=== PATIENT | male | born 1950 | race Caucasian/White ===

== ENCOUNTER 2021-10-23 14:36 | Observation (INO) | payer OTHER ==
[~2021-10-23] VITALS: Ht 170.2 cm; Wt 65.8 kg
[2021-10-23 14:59] VITALS: BP 128/81
[2021-10-23] MEDS ORDERED: MORPHINE SULFATE 4 MG/ML SYR IVP ONE (15:05)
[2021-10-23] MEDS ORDERED: DICYCLOMINE HCL LIQUID 20 MG, ALUMINUM HYD/MAG/SIMETHICONE 30 ML, LIDOCAINE VISCOUS 2% ... PO ONE ×3 (15:05)
[2021-10-23] MEDS ORDERED: ONDANSETRON 4 MG/2 ML VIAL IVP ONE (15:05)
[2021-10-23] MEDS ORDERED: ALUMINUM HYD/MAG/SIMETHICONE 30 ML UDC ONE (15:23)
[2021-10-23] MEDS ORDERED: DICYCLOMINE HCL LIQUID 10 MG/5 ML UDC ONE (15:24)
[2021-10-23 15:47] LABS: BASOPHILS # (AUTO) 0.1 K/uL (0.00-0.22); EOSINOPHILS # (AUTO) 0.3 K/uL (0-0.4); EOSINOPHILS % (AUTO) 6.4 % (0.0-4.0); HEMATOCRIT 38.4 % (36-52); HEMOGLOBIN 13.2 g/dL (12.0-18.0); LYMPHOCYTES # (AUTO) 2.1 K/uL (2.0-11.5); LYMPHOCYTES % (AUTO) 39.9 % (20.5-51.1); MEAN CORPUSCULAR HEMOGLOBIN 31 pg (27-31); MEAN CORPUSCULAR HGB CONC 34 g/dL (33-37); MONOCYTES # (AUTO) 0.2 K/uL (0.8-1.0); MONOCYTES % (AUTO) 4.8 % (1.7-9.3); NEUTROPHILS # (AUTO) 2.5 K/uL (1.8-7.7); NEUTROPHILS % (AUTO) 47.9 % (42.2-75.2); PLATELET COUNT (AUTO) 291 K/uL (140-450); RED BLOOD CELL COUNT(AUTO) 4.32 MIL/uL (4.20-6.10); WHITE BLOOD COUNT (AUTO) 5.1 K/uL (4.8-10.8)
--- NOTE | 2021-10-23 15:54 | NUR ---
patient taken to ct via parminder
--- NOTE | 2021-10-23 16:05 | NUR ---
PT BACK FROM CT
[2021-10-23 16:15] LABS: ALBUMIN 3.3 g/dL (3.4-5.0); ANION GAP 10.2 (8-16); CARBON DIOXIDE 27.6 mmol/L (21-32); CREATININE 0.8 mg/dL (0.6-1.3); POTASSIUM 3.8 mmol/L (3.5-5.1); TOTAL BILIRUBIN 0.9 mg/dL (0.0-1.0)
--- NOTE | 2021-10-23 17:05 | NUR ---
PT HAS 20G IV CATH L FOREARM. PT IS IN GOWN AND RESTING IN BED. SIDE RAILS UP X2 BED AT LOWEST POSITION. BEDSIDE MONITOR ON PATIENT. 01/01 PAIN
[2021-10-23] MEDS ORDERED: NACL 0.9% 1,000 ML IV ONE (17:15)
[2021-10-23] MEDS ORDERED: KETOROLAC 30 MG/ML VIAL IVP ONE (17:15)
--- NOTE | 2021-10-23 17:22 | NUR ---
71YR OLD MALE BIB SELF C/O OF ABD PAIN X2 WEEKS. V/D DENIES CP SOB . 9/10 PAIN LEVEL. PT IS FEVER FREE. CZECH SPEAKING . NO DISTRESS NOTED . RESP EVEN AND UNLABORED. A&OX4 . TRAMDOL NO MED HX
--- NOTE | 2021-10-23 18:05 | NUR ---
PT USING URINAL AT BEDSIDE
--- NOTE | 2021-10-23 18:14 | NUR ---
URINE TO LAB
[2021-10-23] MEDS ORDERED: ASPI-1822 PO (18:32)
[2021-10-23] MEDS ORDERED: LOSA100T1 PO (18:32)
[2021-10-23] MEDS ORDERED: HYDR-4004 PO (18:32)
[2021-10-23] MEDS ORDERED: PANT40EC PO (18:32)
[2021-10-23] MEDS ORDERED: MECL-303 PO (18:32)
[2021-10-23] MEDS ORDERED: AMLO10TA PO (18:32)
[2021-10-23 18:37] LABS: APPEARANCE,URINE CLEAR (CLEAR); BILIRUBIN,URINE NEGATIVE (NEGATIVE); BLOOD, URINE NEGATIVE (NEGATIVE); COLOR,URINE YELLOW (YELLOW); LEUKOCYTE ESTERASE ,URINE NEGATIVE (NEGATIVE); NITRITE, URINE NEGATIVE (NEGATIVE); PH,URINE 5.5 (5.0-9.0); UGLUCOSE NEGATIVE (NEGATIVE)
--- NOTE | 2021-10-23 18:49 | NUR ---
PT WALKED TO BATHROOM WITH STEADY GAIT. URINE SENT TO LAB . PT PLACED BACK ON MONITOR . PENDING ADMISSION ORDERS
[2021-10-23] MEDS ORDERED: ZOLPIDEM 5 MG TAB PO PRN (19:05)
[2021-10-23] MEDS ORDERED: ACETAMINOPHEN 325 MG TAB PO PRN (19:05)
[2021-10-23] MEDS ORDERED: POTASSIUM CHLORIDE 10 MEQ TABER PO PRN (19:05)
[2021-10-23] MEDS ORDERED: DOCUSATE SODIUM 100 MG GELCAP PO PRN (19:05)
[2021-10-23] MEDS ORDERED: guaiFENesin DM 200/20 MG-10 ML 10 ML UDC PO PRN (19:05)
[2021-10-23] MEDS: NACL 0.9% 1,000 ML IV SCH (19:30)
--- NOTE | 2021-10-23 19:35 | NUR ---
ASSISTED PATIETN UP TO USE THE RR. ALL NEEDS MET
--- NOTE | 2021-10-23 19:40 | NUR ---
PATIETN SITTING UP TALKING TO FAMILY MEMBER. BED LOW AND LOCKED. SIDE RAIL UP FOR SAFETY. ALL NEEDS MET
--- NOTE | 2021-10-23 19:44 | NUR ---
FAMILY AT BEDSIDE
[2021-10-23 20:23] LABS: FREE T4 (FREE THYROXINE) 0.23 ng/dL (0.76-1.46); MAGNESIUM 1.4 mg/dL (1.8-2.4); PHOSPHORUS 3.7 mg/dL (2.5-4.9); THYROID STIMULATING HORMONE 56.08 uIU/mL (0.34-3.74)
--- NOTE | 2021-10-23 20:27 | NUR ---
Patient will be admitted to care of DR. KYLE. Admited to [facility]. Will go to room 112A. Belongings list completed. Report to FLY VYAS.
--- NOTE | 2021-10-23 20:57 | NUR ---
The patient's care was reviewed and supervised by Mariama Charlton RN.
--- NOTE | 2021-10-23 22:00 | NUR ---
RECEIVED REPORT FROM ER NURSE ESSENCE ON NEW ADMIT. PT ARRIVED VIA GURNEY TO RM 112-A. PT IS STABLE IN BED. A&OX4. DENIES PAIN AT THIS TIME. ON RM AIR.RR EVEN AND UNLABORED WITH EQUAL CHEST RISE. GI IS INTACT. CC: NAUSEA AND ABDOMINAL PAIN.DX:ABDOMINAL PAIN, ENTERITIS, HYPONATREMIA. PT'S SKIN IS INTACT. PT IS AMBULATORY AND CONTINENT. ALL SAFETY MEASURES IN PLACE. CALL LIGHT WITHIN REACH. WILL CONTINUE TO MONITOR.
[2021-10-23 22:04] LABS: PROTHROMBIN TIME 12.7 secs (10.8-13.4)
--- NOTE | 2021-10-23 22:15 | NUR ---
VSS. MEDS FROM HOME IN BAG LABELED IN MED ROOM . WILL EITHER BE SENT TO PHARMACY OR GIVEN TO FAMILY TO TAKE HOME. DAUGHTER JOHN DELEON CALLED GAVE PT HISTORY: PT HAS HX OF GASTRIC ULCER, GASTRITIS. 10/19/21 HAD ENDOSCOPY AT [facility] THAT SHOWED ULCER WAS HEALED BUT PT WAS POSITIVE FOR H PYLORI. 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 SAW A SPECIALIST ON Mon10/20/21 THAT SAID IT WOULD TAKE TWO MONTHS TO GET BACK TO NORMAL. PT CAN'T TOLERATE COLD LIQUIDS OR SPICY FOODS. HAS HISTORY OF [place] RECEIVED CANCER TREATMENT AND ONCOLOGIST ADVISED PT NOT TO GET COVID VACCINE. PT IS COVID RAPID NEGATIVE. ALSO PT IS ALLERGIC TO TRAMADOL. ARM BAND APPLIED. ALL SAFETY MEASURES IN PLACE. WILL CONTINUE TO MONITOR.
[2021-10-23] MEDS: HYDROcodone/APAP 7.5/325 MG 1 TAB PO PRN (22:19)
--- NOTE | 2021-10-23 22:19 | NUR ---
PT C/O 10/31 ABDOMINAL PAIN RECEIVED NORCO 7.5/325 MG TABLET PO WITH APPLE JUICE. AT 2224 HAD EMESIS 150CC OF GASTRIC CONTENTS. AT 2231 ZOFRAN 4MG/2ML IVP GIVEN WITH RELIEF AFTER 20 MINUTES. SLEPT FOR 1 HOUR. WILL CONTINUE WITH FREQ ROUNDS
[2021-10-23] MEDS: ONDANSETRON 4 MG/2 ML VIAL IM/IVP PRN (22:32)
[2021-10-24 01:22] LABS: BARBITURATE, URINE NEGATIVE ng/ml (NEG <=200); BENZODIAZEPINE, URINE NEGATIVE ng/mL (NEG <=200); CANNABINOID, URINE NEGATIVE ng/mL (NEG <=50); COCAINE, URINE NEGATIVE ng/mL (NEG <=300); OPIATE, URINE POSITIVE ng/mL (NEG <=2000); PHENCYCLIDINE SCREEN,URINE NEGATIVE ng/mL (NEG <=25)
[2021-10-24 01:50] LABS: CHOL/HDL RATIO 5.7 (1-4.5)
--- NOTE | 2021-10-24 02:00 | NUR ---
PT AMBULATES WITH STEADY GAIT. VOIDED BUT NO BM. UA FOR DRUG SCREEN WAS COLLECTED AND SENT TO LAB. STILL NEED STOOL FOR CULTURE AND WBC. PT RESTING BUT NOT SLEEPING. REFUSED SLEEPING PILL. EDUCATED PT ON USE OF CALL LIGHT WILL CONTINUE TO MONITOR .
--- NOTE | 2021-10-24 03:30 | NUR ---
HAD ANOTHER EPISODE OF EMESIS AFTER AMBULATING TO THE BATHROOM. RECONNECTED PT UP TO IVF; NS @100CC/HR. PT IS SITTING AT BEDSIDE WITH VOMIT BAG. ALL SAFETY MEASURES IN PLACE. BED IN LOW AND LOCKED POSITION. PT IS STABLE AT THIS TIME. REFUSED OFFERED PAIN MED OR ZOFRAN. NOW PT IS LYING IN BED C/O BEING COLD. WARM BLANKET GIVEN. PT IS RESTING WITH EYES CLOSED RR EVEN AND UNLABORED WITH EQUAL CHEST RISE.MAD AT THIS TIME. WILL CONTINUE TO MONITOR,
[2021-10-24 04:00] VITALS: BP 125/71
[2021-10-24] MEDS: NACL 0.9% 1,000 ML IV SCH ×3 (05:05→22:16)
[2021-10-24 06:40] LABS: BASOPHILS % (AUTO) 0.4 % (0.0-2.0); EOSINOPHILS # (AUTO) 0.2 K/uL (0-0.4); EOSINOPHILS % (AUTO) 3.8 % (0.0-4.0); HEMATOCRIT 34.7 % (36-52); HEMOGLOBIN 11.8 g/dL (12.0-18.0); LYMPHOCYTES # (AUTO) 1.6 K/uL (2.0-11.5); LYMPHOCYTES % (AUTO) 26.9 % (20.5-51.1); MEAN CORPUSCULAR HEMOGLOBIN 31 pg (27-31); MEAN CORPUSCULAR HGB CONC 34 g/dL (33-37); MONOCYTES # (AUTO) 0.5 K/uL (0.8-1.0); MONOCYTES % (AUTO) 8.4 % (1.7-9.3); NEUTROPHILS # (AUTO) 3.7 K/uL (1.8-7.7); NEUTROPHILS % (AUTO) 60.5 % (42.2-75.2); PLATELET COUNT (AUTO) 255 K/uL (140-450); RED BLOOD CELL COUNT(AUTO) 3.85 MIL/uL (4.20-6.10); WHITE BLOOD COUNT (AUTO) 6.1 K/uL (4.8-10.8)
[2021-10-24 06:56] LABS: ANION GAP 11.6 (8-16); CARBON DIOXIDE 25.4 mmol/L (21-32); CREATININE 0.7 mg/dL (0.6-1.3)
--- NOTE | 2021-10-24 07:30 | NUR ---
ENDORSED TO AM RN FOR CONTINUITY OF CARE. PT IS STABLE. ALL NEEDS MET THROUGHOUT SHIFT.
--- NOTE | 2021-10-24 07:35 | NUR ---
RECEIVED PT FROM NIGHT RN, PT IS ALERT, AWAKE AND ORIENTED, YORUBA SPEAKING, ON ROOM AIR, WITH IV LINE NOTED ON THE LFA G. 20 WITH NS INFUSING AT 100ML/HR, PT'S IV LINE WAS NOTED TO BE INFILTRATED, REMOVED AND WILL RE-INSERT ANOTHER ONE, NO SIGN OF DISTRESS NOTED AND WILL CONTINUE TO MONITOR PT.
[2021-10-24 08:00] VITALS: BP 129/66
--- NOTE | 2021-10-24 08:24 | NUR ---
RECEIVED A CALL FROM DR. MONCADA AND MADE A TELEPHONE ORDER TO KEEP PT NPO NOW FOR MD PLANS ON DOING EGD TO PT.
--- NOTE | 2021-10-24 08:51 | NUR ---
PATIENT HAS BEEN SCREENED AND CATEGORIZED HIGH NUTRITION RISK. PATIENT WILL BE SEEN WITHIN 1-2 DAYS OF ADMISSION. 10/24/21-10/25/[address] REFERRAL RECEIVED FOR VOMITING OVER 3 DAYS.
[2021-10-24] MEDS ORDERED: BISMUTH SUBSALICYLATE 15 ML UDBTL PO SCH (09:00)
[2021-10-24] MEDS: CLARITHROMYCIN 500 MG TAB PO SCH ×2 (09:54→21:52)
[2021-10-24] MEDS: ONDANSETRON 4 MG/2 ML VIAL IM/IVP PRN ×2 (09:54→22:15)
[2021-10-24] MEDS: HYDROcodone/APAP 7.5/325 MG 1 TAB PO PRN (09:54)
[2021-10-24] MEDS: PANTOPRAZOLE 40 MG TABEC PO SCH ×2 (09:54→21:53)
--- NOTE | 2021-10-24 09:54 | NUR ---
PT WAS MEDICATED WITH NORCO FOR PAIN ON HIS ABDOMEN.
[2021-10-24] MEDS: AMOXICILLIN 500 MG CAP PO SCH ×2 (10:38→21:52)
[2021-10-24 12:00] VITALS: BP 116/66
[2021-10-24] MEDS ORDERED: POTASSIUM CHLORIDE 40 MEQ, LIDOCAINE MPF 1% 25 MG in NACL 0.9% 250 ML IV ONE ×6 (13:20)
--- NOTE | 2021-10-24 13:32 | NUR ---
PT AND DAUGHTER WAS ASKED REGARDING PT'S ALLERGY TO TRAMADOL AND ASKED ABOUT THE EFFECT TO PT AND PT SAID THAT TRAMADOL MAKES HIM TOO DROWSY AND HE IS HARD TO WAKE UP AND PT SAID THAT MORPHINE IS FINE WITH HIM. DAUGHTER CONFIRMED THAT PT IS OK TO TAKE MORPHINE IV.
[2021-10-24 16:00] VITALS: BP 127/68
--- NOTE | 2021-10-24 16:17 | NUR ---
10/24/2021 RD INITIAL ASSESSMENT COMPLETED. PLEASE REFER TO NUTRITION ASSESSMENT UNDER CARE ACTIVITY FOR ESTIMATED NUTRITIONAL NEEDS. 1.CONTINUE WITH REGULAR DIET PT TOLERATES. 2.RECOMMEND ENSURE BID FOR NUTRITION SUPPORT. 3.MONITOR PO INTAKE. 4.RD TO FOLLOW-UP IN 2-3 DAYS PATIENT IS HIGH RISK. SOL [facility] RD
--- NOTE | 2021-10-24 19:09 | NUR ---
PT WAS MEDICATED WITH PAIN MEDICATION FOR PAIN RATE OF 8/10 ON HIS ABDOMEN, BP IS 127/85, PULSE IS 80
[2021-10-24] MEDS: MORPHINE SULFATE 2 MG/ML SYR IVP PRN (19:10)
--- NOTE | 2021-10-24 19:20 | NUR ---
RECEIVED BEDSIDE REPORT FROM DAY SHIFT NURSE FOR CONTINUITY OF PT CARE.
[2021-10-24 20:00] VITALS: BP 112/58
--- NOTE | 2021-10-24 22:15 | NUR ---
PT COMPLAINTS OF NAUSEA, MEDICATION FOR NAUSEA ADMINISTERED ORDERED.
[2021-10-25] VITALS: BP 123/62
--- NOTE | 2021-10-25 01:51 | NUR ---
PT C/O OF FEELING "SWEATY" AND ASKED FOR HIS NURSE. FINGERSTICK TAKEN AND IT WAS 50, PT IS ON A REGULAR DIET AND WAS GIVEN A CRANBERRY JUICE, A JELLO AND A SANDWICH. WILL CONTINUE TO MONITOR PT I AND O'S AND HOW HE IS FEELING. EDUCATED PT REGARDING LOW BLOOD SUGAR, PT VERBALIZED UNDERSTANDING WITH REINFORCEMENT.
--- NOTE | 2021-10-25 02:55 | NUR ---
SPOKE TO DAUGHTER [place], PER DAUGHTER, PT HAS NO ISSUE WITH BLOOD SUGAR. AT HOME PT EATS OATMEAL EVERY 3 HOURS. DAUGHTER BROUGHT OATMEAL IN A JAR FOR PATIENT WHEN SHE VISITED PT YESTERDAY PM. PT REQUESTS TO INFORM HER FOR ANY CHANGE OF CONDITION.
--- NOTE | 2021-10-25 02:56 | NUR ---
CHECK PT BLOOD SUGAR = 67. PT AWAKE, ALERT AND ORIENTED.
[2021-10-25 04:00] VITALS: BP 135/72
--- NOTE | 2021-10-25 06:18 | NUR ---
PT AWAKE AND AMBULATES TO RESTROOM. PT VERBALIZED FEELS BETTER.
[2021-10-25] MEDS ORDERED: LEVOTHYROXINE 0.05 MG TAB PO SCH (06:30)
[2021-10-25 07:03] LABS: ANION GAP 10.3 (8-16); CARBON DIOXIDE 25.7 mmol/L (21-32); CREATININE 0.7 mg/dL (0.6-1.3)
[2021-10-25 07:26] LABS: BASOPHILS % (AUTO) 0.7 % (0.0-2.0); EOSINOPHILS # (AUTO) 0.2 K/uL (0-0.4); HEMATOCRIT 35.7 % (36-52); HEMOGLOBIN 12.3 g/dL (12.0-18.0); MEAN CORPUSCULAR HEMOGLOBIN 31 pg (27-31); MEAN CORPUSCULAR HGB CONC 35 g/dL (33-37); MEAN CORPUSCULAR VOLUME 88.9 fL (80-94); MONOCYTES # (AUTO) 0.2 K/uL (0.8-1.0); MONOCYTES % (AUTO) 5.7 % (1.7-9.3); NEUTROPHILS # (AUTO) 1.8 K/uL (1.8-7.7); NEUTROPHILS % (AUTO) 55.6 % (42.2-75.2); PLATELET COUNT (AUTO) 273 K/uL (140-450); RED BLOOD CELL COUNT(AUTO) 4.02 MIL/uL (4.20-6.10); RED CELL DISTRIBUTION WIDTH 14.7 % (11.6-13.7); WHITE BLOOD COUNT (AUTO) 3.2 K/uL (4.8-10.8)
[2021-10-25 08:00] VITALS: BP 121/75
--- NOTE | 2021-10-25 08:22 | NUR ---
RECEIVE ENDORSEMENT FROM PM SHIFT NURSE THAT PATIENT IS RESST IN BED, PIV L. HAND 22G NS 100ML/HR INFUSING. WILL CONTINUE TO MONITOR
[2021-10-25] MEDS: PANTOPRAZOLE 40 MG TABEC PO SCH (08:42)
[2021-10-25] MEDS: CLARITHROMYCIN 500 MG TAB PO SCH (08:42)
[2021-10-25] MEDS: HYDROcodone/APAP 7.5/325 MG 1 TAB PO PRN (08:43)
[2021-10-25] MEDS: AMOXICILLIN 500 MG CAP PO SCH (08:44)
[2021-10-25] MEDS: ONDANSETRON 4 MG/2 ML VIAL IM/IVP PRN (09:34)
[2021-10-25] MEDS: MORPHINE SULFATE 2 MG/ML SYR IVP PRN (10:21)
--- NOTE | 2021-10-25 10:46 | NUR ---
PATIENT'S DAUGHTER/ WAS ABLE TO MET DR. PRICE AND AWARE PATIENT'S PLAN OF CARE DURING THE HOSPITALIZATION FROM PCP. PER PATIENT'S DAUGHTER THAT PATIENT HAD CANCER AND LAST YEAR PATIENT HAD CANCER/LYMPH NODES(?) REMOVE FROM R. AXILLARY/SIDE OF BODY. THEN THERE'S ABOUT 4 SECTIONS OF TREATMENT. PER DAUGHTER, AFTER 4TH SECTION OFT TREATMENT. PATIENT'S THYROID IS NO LONGER FUNCTION NORMAL. WILL CONTINUE TO MONITOR
[2021-10-25] MEDS: NACL 0.9% 1,000 ML IV SCH (11:25)
[2021-10-25 12:00] VITALS: BP 108/69
[2021-10-25 14:31] VITALS: BP 108/69
--- NOTE | 2021-10-25 15:45 | NUR ---
DISCHARGE PATIENT HOME PER PCP ORDER, PATIENT STABLE, DISCHARGE CONSENT SIGNED, IV ACCESS & ARM BAND REMOVED, PATIENT'S HOME MEDICATIONS GIVE BACK TO PATIENT, DISCHARGE INSTRUCTION GIVEN, PATIENT VARGAS F/U HIS PCP WITHIN 7 DAYS PER DAUGHTER, [place] ([phone]).
== END 2021-10-25 15:40 | disposition home or self-care (01) ==
LOC: MED 14:36 → MTU 19:11
PROVIDERS: ADMIT Family Medicine; ATTEND Family Medicine
DX: A41.9 Sepsis, unspecified organism (principal); Z20.822 Contact with and (suspected) exposure to COVID-19; A04.8 Other specified bacterial intestinal infections; K25.9 Gastric ulcer, unspecified as acute or chronic, without hemorrhage or perforation; K52.9 Noninfective gastroenteritis and colitis, unspecified; K57.90 Diverticulosis of intestine, part unspecified, without perforation or abscess without bleeding; D64.9 Anemia, unspecified; E87.1 Hypo-osmolality and hyponatremia; E86.1 Hypovolemia; G93.41 Metabolic encephalopathy; E78.2 Mixed hyperlipidemia; E03.9 Hypothyroidism, unspecified; E86.0 Dehydration; I10 Essential (primary) hypertension; I25.10 Atherosclerotic heart disease of native coronary artery without angina pectoris; K21.9 Gastro-esophageal reflux disease without esophagitis; Z79.899 Other long term (current) drug therapy
CPT/HCPCS: 36415; 71045; 74176; 80048; 80053; 80061; 80305; 81003; 82150; 83036; 83690; 83735; 83880; 84100; 84436; 84439; 84443; 84479; 85025; 85610; 85730; 87045; 87081; 87426; 89055; 96361; 96365; 96366; 96375; 96376; 99285; G0378; J0696; J1885; J2270; J2405; J7030; J7060; J2001; J3480